=== PATIENT | female | born 1970 | race American Indian/Alaskan Native ===

== ENCOUNTER 2018-05-06 00:01 | Emergency (ER) | payer BC ==
[2018-05-06] MEDS ORDERED: Sodium Chloride 0.9% 10 ML Syringe FLUSH PRN (00:08)
--- NOTE | 2018-05-06 00:09 | EDM.PDOC ---
ED HPI GENERAL MEDICAL PROBLEM - General Chief Complaint: Chest Pain Stated Complaint: CHEST PAINS Time Seen by Provider: 05/06/18 00:05 Source of Information: Reports: Patient, RN, RN Notes Reviewed History Limitations: Reports: No Limitations - History of Present Illness INITIAL COMMENTS - FREE TEXT/NARRATIVE: Pt to ER with c/o left sided chest pain. She states the pain began around 9pm and she has been unable to sleep. Rates the pain a 6/10. She states she thought it was indigestion and took Mylanta and TUMs. She states this did not help so she took Nitro twice, once at 2200, once at 2205. She states this did not help the chest pain, but gave her a headache. Patient states she has a hx of NSTEMI. Patient admits to hx of DMII and asthma. Patient denies recent fever, chills, cough. Admits to some nausea, but no vomiting or diarrhea. Patient denies radiation of the pain. Denies SOB at time of onset, states she feels somewhat SOB at this time. Onset: Today, Sudden Left Chest Pain Score (Numeric/FACES): 4 - Related Data Allergies Allergy/AdvReac Type Severity Reaction Status Date / Time No Known Allergies Allergy Verified 05/06/18 03:13 Home Meds: Home Meds Aspirin [Noel Chewable] 81 mg PO DAILY 06/01/13 [History] Lisinopril 2.5 mg PO DAILY 06/01/13 [History] Metoprolol Succinate [Toprol XL] 25 mg PO DAILY 06/01/13 [History] Nitroglycerin 0.4 mg SL ASDIRECTED PRN 06/01/13 [History] Fish Oil/[place]-3 Fatty Acids [Fish Oil] 1,000 mg PO DAILY 12/28/13 [History] Oxymetazoline [Nasal Decongestant] 15 ml PETER DAILY 12/28/13 [History] Albuterol Sulfate [Albuterol Sulfate HFA] 8.5 gm IH ASDIRECTED 03/16/14 [History ] Social & Family History - Living Situation & Occupation Living situation: Reports: with Family ED ROS GENERAL - Review of Systems Review Of Systems: ROS reveals no pertinent complaints other than HPI. ED EXAM, GENERAL - Physical Exam Exam: See Below Exam Limited By: No Limitations General Appearance: Alert, WD/WN, Mild Distress Eye Exam: Bilateral Eye: EOMI, Normal Inspection Ears: Normal External Exam, Hearing Grossly Normal Nose: Normal Inspection Throat/Mouth: Normal Inspection, Normal Voice, No Airway Compromise Head: Atraumatic, Normocephalic Neck: Normal Inspection, Supple, Non-Tender, Full Range of Motion Respiratory/Chest: No Respiratory Distress, Lungs Clear, Normal Breath Sounds, No Accessory Muscle Use, Chest Non-Tender, Wheezing (Expiratory wheeze on the left upper and lower lobes.) Cardiovascular: Normal Peripheral Pulses, Regular Rate, Rhythm, No Edema, No Gallop, No JVD, No Murmur, No Rub Peripheral Pulses: 2+: Radial (L), Radial (R) GI/Abdominal: Normal Bowel Sounds, Soft, Non-Tender (Female) Exam: Deferred Rectal (Female) Exam: Deferred Back Exam: Normal Inspection, Full Range of Motion, NT Extremities: Normal Inspection, Normal Range of Motion, Non-Tender, Normal Capillary Refill, No Pedal Edema Neurological: Alert, Oriented, CN II-XII Intact, Normal Cognition, Normal Gait, Normal Reflexes, No Motor/Sensory Deficits Psychiatric: Normal Affect, Normal Mood Skin Exam: Warm, Dry, Intact, Normal Color, No Rash Lymphatic: No Adenopathy EKG INTERPRETATION EKG Date: 05/06/18 Time: 00:02 Rhythm: NSR Rate (Beats/Min): 66 [place]: Normal P-Wave: Present QRS: Normal ST-T: Normal QT: Normal Comparison: No Change Course - Vital Signs Last Recorded V/S: Last Vital Signs Temp 98.3 F 05/06/18 01:25 Pulse 62 05/06/18 04:31 Resp 17 05/06/18 04:31 BP 123/79 05/06/18 03:46 Pulse Ox 94 L 05/06/18 04:31 - Orders/Labs/Meds Orders: Active Orders 24 hr Category Date Time Status EKG Documentation Completion [RC] STAT Care 05/06/18 00:08 Active EKG Documentation Completion [RC] STAT Care 05/06/18 04:30 Active Peripheral IV Care [RC] . DIRECTED Care 05/06/18 00:09 Active Chest 1V Frontal [CR] Stat Exams 05/06/18 00:08 Taken CULTURE URINE [RM] Stat Lab 05/06/18 03:10 Received Sodium Chloride 0.9% [Normal Saline] 1,000 ml Med 05/06/18 01:13 Active IV .BOLUS Sodium Chloride 0.9% [Saline Flush] Med 05/06/18 00:08 Active 10 ml FLUSH ASDIRECTED PRN Peripheral IV Insertion Adult [OM.PC] Stat Oth 05/06/18 00:08 Ordered Medication Orders Sodium Chloride (Normal Saline) 1,000 mls @ 200 mls/hr IV .BOLUS ONE Stop: 05/06/18 06:12 Last Admin: 05/06/18 03:05 Dose: 200 mls/hr Sodium Chloride (Saline Flush) 10 ml FLUSH ASDIRECTED PRN PRN Reason: Keep Vein Open Labs: Laboratory Tests 05/06/18 05/06/18 05/06/18 Range/Units 00:18 00:37 03:10 WBC 8.6 (5.0-10.0) 10^3/uL RBC 4.81 (4.2-5.4) 10^6/uL Hgb 13.5 (12.0-16.0) g/dL Hct 40.5 (37.0-47.0) % MCV 84.2 (80-100) fL MCH 28.1 (27.0-34.0) pg MCHC 33.3 (33.0-35.0) g/dL Plt Count 222 (150-450) 10^3/uL Neut % (Auto) 43.0 (42.2-75.2) % Lymph % (Auto) 43.8 (20.5-50.1) % [place] % (Auto) 7.4 (2-8) % Eos % (Auto) 5.6 H (1.0-3.0) % Baso % (Auto) 0.2 (0.0-1.0) % Sodium 140 (135-145) mmol/L Potassium 4.3 (3.6-5.0) mmol/L Chloride 101 (101-111) mmol/L Carbon Dioxide 27.0 (21.0-31.0) mmol/L Anion Gap 16.3 BUN 13 (7-18) mg/dL Creatinine 0.7 (0.6-1.3) mg/dL Est Cr Clr Drug Dosing 94.54 mL/min Estimated GFR (MDRD) > 60 BUN/Creatinine Ratio 18.57 Glucose 133 H (74-105) mg/dL Calcium 9.4 (8.4-10.2) mg/dl Total Bilirubin 0.8 (0.2-1.0) mg/dL AST 45 H (10-42) IU/L ALT 85 H (10-60) IU/L Alkaline Phosphatase 82 (42-121) IU/L Troponin I 0.04 H* (0.00-0.02) ng/ml Total Protein 7.1 (6.7-8.2) g/dl Albumin 4.0 (3.2-5.5) g/dl Globulin 3.1 Albumin/Globulin Ratio 1.29 Urine Color Yellow (YELLOW) Urine Appearance Cloudy (CLEAR) Urine pH 8.5 (5.0-9.0) Ur Specific [place] 1.020 (1.005-1.030) Urine Protein Negative (NEGATIVE) Urine Glucose (UA) Negative (NEGATIVE) Urine Ketones Negative (NEGATIVE) Urine Occult Blood Negative (NEGATIVE) Urine Nitrite Negative (NEGATIVE) Urine Bilirubin Negative (NEGATIVE) Urine Urobilinogen 0.2 (0.2-1.0) mg/dL Ur Leukocyte Esterase Small H (NEGATIVE) Urine RBC 0-5 /HPF Urine WBC 50-75 H (0-5/HPF) /HPF Ur Epithelial Cells Few /HPF Urine Bacteria Rare (0-FEW/HPF) /HPF Urine Mucus Few H /LPF 05/06/18 Range/Units 04:35 WBC (5.0-10.0) 10^3/uL RBC (4.2-5.4) 10^6/uL Hgb (12.0-16.0) g/dL Hct (37.0-47.0) % MCV (80-100) fL MCH (27.0-34.0) pg MCHC (33.0-35.0) g/dL Plt Count (150-450) 10^3/uL Neut % (Auto) (42.2-75.2) % Lymph % (Auto) (20.5-50.1) % [place] % (Auto) (2-8) % Eos % (Auto) (1.0-3.0) % Baso % (Auto) (0.0-1.0) % Sodium (135-145) mmol/L Potassium (3.6-5.0) mmol/L Chloride (101-111) mmol/L Carbon Dioxide (21.0-31.0) mmol/L Anion Gap BUN (7-18) mg/dL Creatinine (0.6-1.3) mg/dL Est Cr Clr Drug Dosing mL/min Estimated GFR (MDRD) BUN/Creatinine Ratio Glucose (74-105) mg/dL Calcium (8.4-10.2) mg/dl Total Bilirubin (0.2-1.0) mg/dL AST (10-42) IU/L ALT (10-60) IU/L Alkaline Phosphatase (42-121) IU/L Troponin I 0.04 H* (0.00-0.02) ng/ml Total Protein (6.7-8.2) g/dl Albumin (3.2-5.5) g/dl Globulin Albumin/Globulin Ratio Urine Color (YELLOW) Urine Appearance (CLEAR) Urine pH (5.0-9.0) Ur Specific [place] (1.005-1.030) Urine Protein (NEGATIVE) Urine Glucose (UA) (NEGATIVE) Urine Ketones (NEGATIVE) Urine Occult Blood (NEGATIVE) Urine Nitrite (NEGATIVE) Urine Bilirubin (NEGATIVE) Urine Urobilinogen (0.2-1.0) mg/dL Ur Leukocyte Esterase (NEGATIVE) Urine RBC /HPF Urine WBC (0-5/HPF) /HPF Ur Epithelial Cells /HPF Urine Bacteria (0-FEW/HPF) /HPF Urine Mucus /LPF Meds: Medications Generic Name Dose Route Start Last Admin Trade Name Freq PRN Reason Stop Dose Admin Sodium Chloride 1,000 mls @ 200 mls/hr 05/06/18 01:13 05/06/18 03:05 Normal Saline IV 05/06/18 06:12 200 mls/hr .BOLUS ONE Administration Sodium Chloride 10 ml 05/06/18 00:08 Saline Flush FLUSH ASDIRECTED PRN Keep Vein Open Discontinued Medications Generic Name Dose Route Start Last Admin Trade Name Freq PRN Reason Stop Dose Admin Acetaminophen 650 mg 05/06/18 00:42 05/06/18 00:49 Tylenol PO 05/06/18 00:43 650 mg NOW ONE Administration Al Hydroxide/Mg Hydroxide 30 ml 05/06/18 02:52 05/06/18 02:58 Gi Cocktail PO 05/06/18 02:53 30 ml ONETIME ONE Administration Aspirin 324 mg 05/06/18 00:27 05/06/18 00:40 Aspirin PO 05/06/18 00:28 324 mg ONETIME ONE Administration - Radiology Interpretation Free Text/Narrative:: Chest xray: FINDINGS: Lungs: Unremarkable. No consolidation. Pleural space: Unremarkable. No pleural effusion. No pneumothorax. Heart/Mediastinum: Unremarkable. No cardiomegaly. Bones/joints: Unremarkable. IMPRESSION: No acute findings. Thank you for allowing us to participate in the care of your patient. Dictated and Authenticated by: Celestino Whiteny MD 05/06/2018 12:42 AM Central Time ([place] & [place]) See rad report - Re-Assessments/Exams Free Text/Narrative Re-Assessment/Exam: 05/06/18 05:07 Previous troponin levels for the patient have been 0.03 and 0.04 in the past. Today first troponin was 0.04. EKG stable. Patient was kept in temporary location for a recheck of the troponin and repeat EKG. No change in the EKG, no change in the troponin level. Patient was given a GI cocktail for midsternal chest pain. This gave the patient relief. 05/06/18 05:09 All findings discussed with the patient and she states understanding. Departure - Departure Time of Disposition: 05:20 Disposition: Home, Self-Care 01 Condition: Good Clinical Impression: Gastroesophageal reflux disease Qualifiers: Esophagitis presence: esophagitis presence not specified Qualified Code(s): K21.9 - Gastro-esophageal reflux disease without esophagitis Instructions: Indigestion, [id number], Nonspecific Chest Pain, [id number], Heartburn, [id number], Gastroesophageal Reflux Disease, Adult, [id number] Forms: ED Department Discharge Additional Instructions: Drink plenty of water May take over the counter omeprazole as directed RX: Macrobid for Urinary tract infection Follow up with your primary care facility - My Orders Last 24 Hours: My Active Orders 05/06/18 00:08 EKG Documentation Completion [RC] STAT Chest 1V Frontal [CR] Stat Sodium Chloride 0.9% [Saline Flush] 10 ml FLUSH ASDIRECTED PRN Peripheral IV Insertion Adult [OM.PC] Stat 05/06/18 00:09 Peripheral IV Care [RC] . DIRECTED 05/06/18 01:13 Sodium Chloride 0.9% [Normal Saline] 1,000 ml IV .BOLUS 05/06/18 03:10 CULTURE URINE [RM] Stat 05/06/18 04:30 EKG Documentation Completion [RC] STAT - Assessment/Plan Last 24 Hours: My Active Orders 05/06/18 00:08 EKG Documentation Completion [RC] STAT Chest 1V Frontal [CR] Stat Sodium Chloride 0.9% [Saline Flush] 10 ml FLUSH ASDIRECTED PRN Peripheral IV Insertion Adult [OM.PC] Stat 05/06/18 00:09 Peripheral IV Care [RC] . DIRECTED 05/06/18 01:13 Sodium Chloride 0.9% [Normal Saline] 1,000 ml IV .BOLUS 05/06/18 03:10 CULTURE URINE [RM] Stat 05/06/18 04:30 EKG Documentation Completion [RC] STAT
[2018-05-06] MEDS: Aspirin 81 MG Tab.Chew PO ONE (00:40)
[2018-05-06] MEDS: Acetaminophen 325 MG Tab PO ONE (00:49)
[2018-05-06 01:02] LABS: ANION GAP 16.3; CHLORIDE,CL 101 mmol/L (101-111); SODIUM,NA 140 mmol/L (135-145)
[2018-05-06] MEDS: GI Cocktail Oral Solution 30 ML PO ONE (02:58)
[2018-05-06] MEDS: Sodium Chloride 0.9% 1,000 ML IV ONE (03:05)
[2018-05-06 05:00] VITALS: BP 123/79
== END 2018-05-06 06:03 | disposition home or self-care (01) ==
LOC: DL.ED 00:01
DX: K21.9 Gastro-esophageal reflux disease without esophagitis (principal); Z79.82 Long term (current) use of aspirin
CPT/HCPCS: 36415; 71045; 80053; 81001; 84484; 85025; 87086; 93005; 96365; 96366; 99285; A9270; J7030

== ENCOUNTER 2021-11-28 13:37 | Emergency (ER) | payer OTHER ==
[2021-11-28 13:55] VITALS: BP 144/79; PULSE 59
[2021-11-28 14:23] LABS: AMPHETAMINES,URINE NEGATIVE (NEGATIVE); BARBITURATES,URINE NEGATIVE (NEGATIVE); BENZODIAZEPINE,URINE NEGATIVE (NEGATIVE); MDMA (ECSTASY), URINE NEGATIVE (NEGATIVE); METHADONE,URINE NEGATIVE (NEGATIVE); METHAMPHETAMINES,URINE NEGATIVE (NEGATIVE); OPIATES,URINE NEGATIVE (NEGATIVE); OXYCODONE,URINE NEGATIVE (NEGATIVE); PHENCYCLIDINE,URINE NEGATIVE (NEGATIVE); TCA,URINE NEGATIVE (NEGATIVE)
[2021-11-28 14:45] LABS: PTT,PARTIAL THROMBOPLSTIN TIME 24.8 SEC (22.0-34.0)
[2021-11-28 14:55] LABS: ANION GAP 12.2 mEq/L (7-13); CHLORIDE,CL 105 mmol/L (98-107); SODIUM,NA 142 mmol/L (136-145)
[2021-11-28 14:58] LABS: ESTIMATED GFR 90 mL/min (>=60)
[2021-11-28] MEDS ORDERED: Acetaminophen 500 MG Tab PO ONE (16:11)
== END 2021-11-28 18:46 | disposition home or self-care (01) ==
LOC: DL.ED 13:37
DX: R07.89 Other chest pain (principal); R00.1 Bradycardia, unspecified; R94.31 Abnormal electrocardiogram [ECG] [EKG]; E78.00 Pure hypercholesterolemia, unspecified; I10 Essential (primary) hypertension; I25.2 Old myocardial infarction; K21.9 Gastro-esophageal reflux disease without esophagitis; E13.9 Other specified diabetes mellitus without complications; Z86.16 Personal history of COVID-19; Z79.82 Long term (current) use of aspirin; Z20.822 Contact with and (suspected) exposure to COVID-19
CPT/HCPCS: 36415; 71045; 80053; 80305-QW; 80307; 81001; 82150; 83605; 83690; 83735; 83880; 84443; 84484; 85025; 85610; 85730; 86140; 87086; 93005; 93010; 99284; 99285; A9270-GY; U0002

== ENCOUNTER 2024-12-15 15:59 | Emergency (ER) | payer OTHER ==
[2024-12-15 16:44] LABS: BASOPHILS PERCENT AUTO 0.2 % (0.0-1.0); EOSINOPHILS PERCENT AUTO 2.5 % (1.0-3.0); LYMPHOCYTES PERCENT AUTO 20.9 % (20.5-50.1); MONOCYTES PERCENT AUTO 8.2 % (2-8); NEUTROPHILS PERCENT AUTO 68.2 % (42.2-75.2); PLATELET COUNT,PLT 216 10^3/uL (150-450); RED BLOOD CELL COUNT 4.67 10^6/uL (4.2-5.4); WHITE BLOOD CELL COUNT,WBC 11.2 10^3/uL (5.0-10.0)
[2024-12-15 16:48] LABS: APPEARANCE,URINE CLEAR (CLEAR); GLUCOSE,URINE NEGATIVE (NEGATIVE); OCCULT BLOOD,URINE NEGATIVE (NEGATIVE)
[2024-12-15 17:03] LABS: A/G RATIO 1.0; ALANINE AMINOTRANSFERASE,ALT 28.0 U/L (14-59); ASPARTATE AMNIOTRANSFERASE,AST 10.0 U/L (15-37); BILIRUBIN TOTAL 0.4 mg/dL (0.2-1.0); BLOOD UREA NITROGEN,BUN 11.0 mg/dL (7-18); CARBON DIOXIDE,CO2 29.0 mmol/L (21-32); CHLORIDE,CL 105.0 mmol/L (98-107); CREATININE 0.66 mg/dL (0.55-1.02); EST CRCL DRUG DOSING (CG) 93.66 mL/min; GLUCOSE RANDOM 147.0 mg/dL (70-99); POTASSIUM,K 4.0 mmol/L (3.5-5.1); PROTEIN TOTAL,TP 7.5 g/dL (6.4-8.2); SODIUM,NA 143.0 mmol/L (136-145)
[2024-12-15 17:05] LABS: ESTIMATED GFR 104.0 mL/min (>=60)
[2024-12-15] MEDS: Iopamidol 612 MG/ML 100 ML Bottle IVPUSH ONE (17:10)
[2024-12-15] MEDS ORDERED: Sodium Chloride 0.9% 10 ML Syringe FLUSH PRN (17:10)
[2024-12-15] MEDS: Take Home: Amoxicillin/Clavulanate K 875-125 MG Tab, 6 Tab Pack PO ONE (19:25)
[2024-12-15 19:32] VITALS: BP 127/65; PULSE 82
== END 2024-12-15 19:28 | disposition home or self-care (01) ==
LOC: DL.ED 15:59
DX: K57.32 Diverticulitis of large intestine without perforation or abscess without bleeding (principal); E78.00 Pure hypercholesterolemia, unspecified; I10 Essential (primary) hypertension; I25.2 Old myocardial infarction; E11.9 Type 2 diabetes mellitus without complications; Z86.16 Personal history of COVID-19
CPT/HCPCS: 36415; 74177; 80053; 81003; 83690; 83735; 85025; 86140; 99284; A9270; Q9967